=== PATIENT | male | born 1960 | race Caucasian/White ===

== ENCOUNTER 2023-09-19 04:43 | Day surgery (SDC) | payer OTHER ==
[2023-09-16 10:07] VITALS: BMI 27.2
[2023-09-19] MEDS ORDERED: PROPOFOL 40 ML ONE (07:55)
[2023-09-19] MEDS ORDERED: MIDAZOLAM HCL 2 MG/2 ML SINGLE DOSE VIAL ONE (07:55)
[2023-09-19] MEDS ORDERED: oxyCODONE HCL 5 MG TABLET PO PRN ×2 (08:09)
[2023-09-19] MEDS ORDERED: ONDANSETRON 4 MG/2 ML VIAL IVPUSH PRN (08:09)
[2023-09-19] MEDS ORDERED: PROMETHAZINE HCL 25 MG/1 ML VIAL IVPB PRN (08:09)
[2023-09-19] MEDS ORDERED: ACETAMINOPHEN 1000 MG/100 ML BAG IVPB PRN (08:13)
[2023-09-19] MEDS ORDERED: LACTATED RINGERS SOLUTION 1,000 ML IV SCH (08:15)
[2023-09-19] MEDS ORDERED: ceFAZolin SODIUM 1 GM VIAL IVPB ONE ×2 (08:35→08:49)
[2023-09-19] MEDS ORDERED: ceFAZolin SODIUM 1 GM VIAL ONE (08:48)
[2023-09-19] MEDS ORDERED: LIDOCAINE 1%/EPI 1:100000 (20 ML MULTI DOSE VIAL) IJ ONE ×2 (08:55)
[2023-09-19] MEDS ORDERED: KETOROLAC TROMETHAMINE 30 MG/1 ML VIAL ONE (09:03)
[2023-09-19 09:30] VITALS: PULSE 64
[2023-09-19 10:31] VITALS: BP 150/80; RESP 20; TEMP 97
== END 2023-09-19 10:43 | disposition home or self-care (01) ==
LOC: JASU-SURG 04:43
PROVIDERS: ATTEND Surgery
PROC: 0JB40ZZ Excision of Right Neck Subcutaneous Tissue and Fascia, Open Approach (ICD-10-PCS; principal; 2023-09-19 08:00)
DX: L72.3 Sebaceous cyst (principal)
CPT/HCPCS: 88304-TC